=== PATIENT | female | born 1960 | race Caucasian/White ===

== ENCOUNTER 2016-10-30 10:27 | Emergency (ER) | payer OTHER ==
[~2016-10-30] VITALS: Ht 165.1 cm; Wt 96.0 kg
[~2016-10-30 10:27] MED LIST: CIPR500T4 PO; METR-1 PO; PROBCAP4 PO; RANI150 PO
[2016-10-30 10:30] VITALS: BP 151/88; PULSE 85; RESP 18; TEMP 98.1; O2SAT 98
--- NOTE | 2016-10-30 11:27 | PD ---
HPI Chief Complaint: Laceration/Skin Injury Time Seen by Provider: 10:39 Travel History International Travel<30 days: No Contact w/Intl Traveler<30days: No Traveled to known affect area: No History of Present Illness HPI 55-year-old female arrives after she cut her leg on a [place] tree stand. Since then she's had pain and bleeding. She called EMS who wrapped the bandage and then she got a ride here. Last tetanus was about 4 years ago. She reports the stand with a patricia. She was ambulatory immediately afterwards. Bleeding resolved with the gauze wrap. No numbness tingling distal to the laceration. PFSH Past Medical History Anemia: Yes Asthma: No Heart Rhythm Problems: No Cancer: No Cardiovascular Problems: Yes (HTN) High Cholesterol: Yes Chest Pain: No Congestive Heart Failure: No COPD: No Diminished Hearing: No Diverticulitis: Yes Endocrine: Yes GERD: Yes Genitourinary: No Immune Disorder: No Musculoskeletal: Yes Neurologic: Yes Psychiatric: No Reproductive: No Respiratory: No Sleep Apnea: No ?: Not Menopausal: Yes Past Surgical History Section: Yes Cholecystectomy: Yes Gynecologic Surgery: Yes () Other Surgery: Yes (lower back) Social History Alcohol Use: Yes (ocaas beer) Tobacco Use: Yes (1/2PPD) Substance Use: No Allergies-Medications (Allergen,Severity, Reaction): Coded Allergies: Penicillin (Verified Allergy, Severe, Anaphylaxis, 10/30/16) Reported Meds & Prescriptions Reported Meds & Active Scripts Active No Active Prescriptions or Reported Medications Review of Systems General / Constitutional: No: Fever Neurologic: No: Paresthesia, Sensory Disturbance Physical Exam Narrative GENERAL: 55-year-old female pleasant well-nourished well-developed SKIN: Approx 10cm laceration medial distal aspect left leg. HEAD: Atraumatic. Normocephalic. EYES: Pupils equal and round. No scleral icterus. No injection or drainage. GASTROINTESTINAL: Abdomen soft, non-tender, nondistended. Hepatic and splenic margins not palpable. MUSCULOSKELETAL: No obvious deformities. No clubbing. No cyanosis. No edema. NEUROLOGICAL: Awake and alert. No obvious cranial nerve deficits. Motor grossly within normal limits. Normal speech. PSYCHIATRIC: Appropriate mood and affect; insight and judgment normal. Data Data Last Documented VS Vital Signs Date Time Temp Pulse Resp B/P Pulse Ox O2 Delivery O2 Flow Rate FiO2 10/30/16 10:30 98.1 85 18 151/88 98 Orders ^ Wound Care (10/30/16 11:30) Tetanus/Diphtheria Tox Adult (Tetanus/Di (10/30/16 11:30) MDM Medical Decision Making Medical Screen Exam Complete: Yes Emergency Medical Condition: Yes Medical Record Reviewed: Yes Differential Diagnosis laceration, abrasion, avulsion Narrative Course Laceration repaired. Return precautions discussed,. Dressed/wrapped. Pt very appreciative. Procedures Procedure Narrative LACERATION LOCATION: Left leg LENGTH: 10 cm NUMBER OF STITCHES/JAVED: 8 REPAIR: The area of the laceration was prepped with Betadine and sterilely draped. The laceration was infiltrated with Lidocaine with epinephrine. The wound was copiously irrigated and explored without evidence of foreign body, tendon injury or neurovascular injury. The wound was closed using 4-0 Ethilon. This was a single layer repair. A sterile dressing was applied. The patient was advised to keep the dressing clean and dry. Patient tolerated the procedure well. Diagnosis Primary Impression: Laceration of leg Qualified Code: S81.812A - Laceration of leg, left, initial encounter Referrals: RETURN TO ER IN 9 DAYS FOR SUTURE REMOVAL Additional Instructions: You have a choice when it comes to health care, and we are glad that you chose [facility]. Hopefully, we have met your expectations on today's visit. You are welcome to return to [facility] at any time, as we are committed to meeting the health care needs of our community. RETURN Med/Other Pt SpecificInfo: No Change to Meds Scripts No Active Prescriptions or Reported Meds Disposition: 01 DISCHARGE HOME Condition: Osvaldo Cabrera MD Oct 30, 2016 11:27
[2016-10-30] MEDS ORDERED: TETANUS/DIPHTHERIA TOXOID ADULT 0.5 ML VIAL IM ONE (11:30)
== END 2016-10-30 11:47 | disposition home or self-care (01) ==
LOC: PHEFT 10:27
DX: S81.812A Laceration without foreign body, left lower leg, initial encounter (principal); I10 Essential (primary) hypertension; E78.00 Pure hypercholesterolemia, unspecified; F17.200 Nicotine dependence, unspecified, uncomplicated; W45.8XXA Other foreign body or object entering through skin, initial encounter; Z23 Encounter for immunization; Z86.2 Personal history of diseases of the blood and blood-forming organs and certain disorders involving the immune mechanism; Z86.79 Personal history of other diseases of the circulatory system; Z87.19 Personal history of other diseases of the digestive system; Z87.39 Personal history of other diseases of the musculoskeletal system and connective tissue; Z86.69 Personal history of other diseases of the nervous system and sense organs; Z86.39 Personal history of other endocrine, nutritional and metabolic disease
CPT/HCPCS: 12034; 90471; 90714